=== PATIENT | female | born 1990 | race Caucasian/White ===

== ENCOUNTER 2016-10-25 12:45 | Emergency (ER) | payer BC, MEDICAID ==
[2016-10-25 13:42] VITALS: BP 115/73
--- NOTE | 2016-10-25 15:22 | UC ---
Throat Pain/Nasal Abdirahman HPI - HPI Summary HPI Summary: THIRTEEN WEEKS ; TWO DAYS OF SORE THROAT. NO FEVER. NO ABDOMINAL PAIN. NO RASHES. - History of Current Complaint Hx Obtained From: Patient Hx Last Menstrual Period: 11/12/14 has nexplanon Onset/Duration: Gradual Onset, Lasting Days, Still Present Severity: Moderate Pain Intensity: 10 Pain Scale Used: 0-10 Numeric Cough: Nonproductive Associated Signs & Symptoms: Positive: Dysphagia, Hoarseness - Epiglottits Risk Factors Epiglottis Risk Factors: Negative <Rock Arango - Last Filed: 10/25/16 15:18> <Tori Barrientos - Last Filed: 10/26/16 08:07> - History of Current Complaint Chief Complaint: UCGeneralIllness Stated Complaint: SORE THROAT Time Seen by Provider: 10/25/16 14:23 - Allergies/Home Medications Allergies/Adverse Reactions: Allergies Allergy/AdvReac Type Severity Reaction Status Date / Time Codeine AdvReac Intermediate Vomiting Verified 10/25/16 13:42 Home Medications: Home Medications Vitamin TAB* 1 tab PO BEDTIME 10/25/16 [History Confirmed 10/25/16] PMH/Surg Hx/FS Hx/Imm Hx Previously Healthy: Yes - Surgical History Surgical History: Yes Surgery Procedure, Year, and Place: GANGLION CYSTECTOMY LEFT HAND. TEETH EXTRACTIONS - Family History Known Family History: Negative: Respiratory Disease - Social History Occupation: Employed Full-time Lives: With Family Alcohol Use: None Substance Use Type: None Smoking Status (MU): Never Smoked Tobacco Household Exposure Type: Cigarettes <Rock Arango - Last Filed: 10/25/16 15:18> Review of Systems Constitutional: Negative Skin: Negative Eyes: Negative ENT: Sore Throat Respiratory: Negative Cardiovascular: Negative Gastrointestinal: Negative Genitourinary: Negative Motor: Negative Neurovascular: Negative Musculoskeletal: Negative Neurological: Negative Psychological: Negative All Other Systems Reviewed And Are Negative: Yes <Rock Arango - Last Filed: 10/25/16 15:18> Physical Exam Triage Information Reviewed: Yes Appearance: No Pain Distress, Well-Nourished, Ill-Appearing Vital Signs: Initial Vital Signs Temp 97.5 F 10/25/16 13:37 Pulse 94 10/25/16 13:37 Resp 16 10/25/16 13:37 BP 115/73 10/25/16 13:37 Pulse Ox 100 10/25/16 13:37 Vital Signs Reviewed: Yes Eye Exam: Normal ENT: Positive: Hearing grossly normal, Pharyngeal erythema, TMs normal, Tonsillar swelling Dental Exam: Normal Neck exam: Normal Neck: Positive: Supple, Nontender, No Lymphadenopathy Respiratory Exam: Normal Respiratory: Positive: Chest non-tender, Lungs clear, Normal breath sounds, No respiratory distress Cardiovascular Exam: Normal Cardiovascular: Positive: RRR, No Murmur, Pulses Normal, Brisk Capillary Refill Abdominal Exam: Normal Musculoskeletal Exam: Normal Musculoskeletal: Positive: Strength Intact, ROM Intact Neurological Exam: Normal Psychological Exam: Normal Skin Exam: Normal <Rock Arango - Last Filed: 10/25/16 15:18> Vital Signs: Initial Vital Signs Temp 97.5 F 10/25/16 13:37 Pulse 94 10/25/16 13:37 Resp 16 10/25/16 13:37 BP 115/73 10/25/16 13:37 Pulse Ox 100 10/25/16 13:37 <Tori Barrientos - Last Filed: 10/26/16 08:07> Throat Pain/Nasal Course/Dx - Differential Dx/Diagnosis Differential Diagnosis/HQI/PQRI: Pharyngitis, Tonsillitis, URI Provider Diagnoses: STREP TONSILLITIS <Rock Arango - Last Filed: 10/25/16 15:18> Discharge <Rock Arango - Last Filed: 10/25/16 15:18> <Tori Barrientos - Last Filed: 10/26/16 08:07> - Discharge Plan Condition: Stable Disposition: HOME Prescriptions: Amoxicillin (*) [Amoxicillin 875 MG (*)] 875 mg PO BID #20 tab Patient Education Materials: Strep Throat (ED) Forms: *Work Release Referrals: [facility]FERR[facility] [Outside] No Primary Care Phys,NOPCP [Medical Doctor] - Attestation Statement User Type: Provider - I was available for consult. This patient was seen by the [facility]. The patient was not presented to, seen by, or examined by me. -Jesús <Tori Barrietnos - Last Filed: 10/26/16 08:07>
== END 2016-10-25 14:54 | disposition home or self-care (01) ==
LOC: UCCORT 12:45
DX: O26.891 Other specified pregnancy related conditions, first trimester (principal); J03.00 Acute streptococcal tonsillitis, unspecified; Z3A.13 13 weeks gestation of pregnancy; Z88.5 Allergy status to narcotic agent; Z77.22 Contact with and (suspected) exposure to environmental tobacco smoke (acute) (chronic)
CPT/HCPCS: 87651; 99212; G0463